=== PATIENT | female | born 1995 | race Hispanic/Latino ===

== ENCOUNTER 2017-10-10 20:57 | Emergency (ER) | payer OTHER ==
[2017-10-10] MEDS: PENICILLIN V POTASSIUM 500 MG TAB PO (21:40)
== END 2017-10-10 21:57 | disposition home or self-care (01) ==
LOC: M ED 20:57
DX: J02.9 Acute pharyngitis, unspecified (principal); R50.9 Fever, unspecified
CPT/HCPCS: 99282